=== PATIENT | male | born 1990 | race African-American/Black ===

== ENCOUNTER 2023-11-12 14:06 | Emergency (ER) | payer SELFPAY ==
[~2023-11-12] VITALS: Ht 185.4 cm; Wt 148.6 kg
[2023-11-12 14:16] VITALS: TEMP 98.4
[2023-11-12] MEDS ORDERED: MEDROL 4MG DOSPA4 MG PO (17:25)
[2023-11-12 17:27] LABS: PH 5.5 (5.0-8.5); URINE APPEARANCE CLEAR (CLEAR/HAZY); URINE BLOOD 3+ (NEGATIVE); URINE COLOR YELLOW (YELLOW); URINE GLUCOSE NEGATIVE (NEGATIVE); URINE KETONE TRACE (NEGATIVE); URINE NITRATE NEGATIVE (NEGATIVE); URINE PROTEIN(semi-quant) 2+ (NEGATIVE); URINE UROBILINOGEN 0.2 E.U/dL (0.2-1.0)
[2023-11-12] MEDS ORDERED: CIPRO 250MG TA250 MG PO (17:44)
[2023-11-12 17:45] VITALS: BP 147/98; PULSE 87
[2023-11-12 18:01] LABS: COLLECTION METHOD CLEAN CATCH
== END 2023-11-12 17:51 | disposition home or self-care (01) ==
LOC: COL.ER 14:06
PROVIDERS: Nurse Practitioner
DX: N47.8 Other disorders of prepuce (principal); N39.0 Urinary tract infection, site not specified